=== PATIENT | female | born 1950 | race Caucasian/White ===

== ENCOUNTER 2025-07-17 22:08 | Inpatient (IN) ==
[2025-07-17 23:00] LABS: Hematocrit (blood only) 43.1 % (37.0-47.0); Hemoglobin 14.6 g/dl (12.0-16.0); Immature Granulocytes # (auto) 0.01 K/uL (0.01-0.20); Immature Granulocytes % (auto) 0.1 %; Mean Corpuscular Hemoglobin 29.2 pg (25.0-34.0); Mean Corpuscular Volume 86.2 fL (80.0-100.0); Platelet Count 309 K/uL (130-400); RDW Standard Deviation 40.9 fL (36.4-46.3); Red Blood Count 5.00 M/uL (4.20-5.40); White Blood Count 8.77 K/ul (4.8-10.8)
[2025-07-18 00:18] LABS: Alanine Aminotransferase 12 U/L (7-52); Albumin Globulin Ratio 1.3 (0.9-2); Albumin Level 4.4 gm/dl (3.4-5.0); Alkaline Phosphatase 85 U/L (34-104); Anion Gap 6 (3-11); Bilirubin,Total 0.5 mg/dl (0.2-1.0); Blood Urea Nitrogen 14 mg/dl (6-23); Calcium 9.5 mg/dl (8.6-10.3); Carbon Dioxide 28 mmol/L (21-32); Chloride 106 mmol/L (98-107); Globulin 3.3 gm/dl (2.5-4.0); Glucose 91 mg/dl (70-99(Fasting)); Magnesium 2.2 mg/dl (1.7-2.4); Sodium 140 mmol/L (136-145); Total Protein 7.7 gm/dl (6.0-8.3)
[2025-07-18] MEDS: OPTIRAY 320 125ml IV ONE (00:22)
--- NOTE | 2025-07-18 00:32 | XRay Report ---
Exam(s): XR CXR 1 VIEW EXAM: XR Chest, 1 View CLINICAL HISTORY: neuro deficit, acute stroke suspected. TECHNIQUE: Frontal view of the chest. COMPARISON: Portable chest single view 03/09/2022 FINDINGS: Lungs: No focal consolidation. The pulmonary vasculature demonstrates no significant radiographic abnormality. Pleural space: Unremarkable. No pneumothorax. No large pleural effusion. Heart: Unremarkable. No cardiomegaly. Mediastinum: No significant abnormality identified. The trachea is midline. Bones/joints: Unremarkable. No acute fracture. IMPRESSION: No focal consolidation or acute cardiopulmonary process identified. Electronically signed by: Alejandro Ricks MD 07/18/25 00:31 AM
[2025-07-18 00:44] LABS: Potassium 4.1 mmol/L (3.5-5.1)
--- NOTE | 2025-07-18 01:11 | CT Scan Report ---
EXAM: CT head/brain wo con CLINICAL HISTORY: neuro deficit, acute stroke suspected TECHNIQUE: Multiple axial images were obtained from the skull base to the vertex without contrast. CT scan was performed according to ALARA (as low as reasonably achievable). COMPARISON: None. FINDINGS: There is cerebral atrophy. No evidence of space-occupying lesion, hemorrhage, edema, mass effect, midline shift, extra-axial collection, or hydrocephalus is noted. Basal cisterns are symmetric and normal in size and configuration. There are scattered periventricular hypodensities, as can be seen with chronic microvascular ischemic changes. The hagen-white matter differentiation is preserved. The visualized paranasal sinuses and mastoid air cells are well aerated. Orbital contents are within normal limits. Bony structures are intact. IMPRESSION: 1. CT scan is negative for large territorial ischemic or hemorrhagic stroke. 2. Non-contrast CT can be negative in the setting of hyperacute infarct or small ischemic infarct, and further evaluation with diffusion-weighted MRI is recommended as clinically appropriate. 3. Chronic microvascular ischemic changes. 4. Cerebral atrophy. Electronically signed by Brennen Ge 07-18-2025 01:10 AM
--- NOTE | 2025-07-18 01:12 | CT Scan Report ---
EXAM: CT angio head w con CLINICAL HISTORY: neuro deficit, acute stroke suspected TECHNIQUE: Contrast-enhanced, thin-slice CT angiography scan of the cerebral vessels was performed with intravenous contrast. Angiographic images were processed, and 3D MIP images were acquired for interpretation. Contiguous axial images were obtained. Reformatted coronal and sagittal images were also reviewed. If IV contrast material had not been administered, the likelihood of detecting abnormalities relevant to the patient's condition would have been substantially decreased. The CT scan was performed according to ALARA (as low as reasonably achievable) principles. COMPARISON: None. FINDINGS: Bilateral internal carotid arteries show normal course, calibre, and opacification in the canalicular and cavernous parts. Their division into the anterior cerebral artery and middle cerebral artery is defined. A1, A2, and M1, M2 segments are normal on both sides. Bilateral vertebral arteries are seen to unite to form the basilar artery in a normal fashion. The basilar artery shows normal course, caliber, and opacification. Its division into the posterior cerebral arteries is defined. Bilateral P1 and P2 segments are normal. Visualized venous structures show normal opacification. No evidence of intracranial aneurysm or AV malformation is seen. IMPRESSION: 1. No evidence of stenosis or aneurysm. No evidence of dissection. Electronically signed by Brennen Ge 07-18-2025 01:12 AM
--- NOTE | 2025-07-18 01:13 | CT Scan Report ---
EXAM: CT angio neck with con CLINICAL HISTORY: neuro deficit, acute stroke suspected TECHNIQUE: Contrast-enhanced thin-slice CT angiography scan of the carotid vessels was performed with intravenous contrast. Angiographic images were processed, and 3D MIP images were acquired for interpretation. Contiguous axial images were obtained. Reformatted coronal and sagittal images were also reviewed. If IV contrast material had not been administered, the likelihood of detecting abnormalities relevant to the patient's condition would have been substantially decreased. The CT scan was performed according to ALARA (as low as reasonably achievable). COMPARISON: none FINDINGS: The included great vessels of the aortic arch are grossly unremarkable. The common carotid artery, carotid bulb, internal carotid artery, and origin of the external carotid artery are well opacified. The vertebral arteries are well opacified. The jugular veins are well opacified. The included lung apices are grossly unremarkable. The thyroid gland appears unremarkable. IMPRESSION: 1. No evidence of stenosis or aneurysm. No evidence of dissection. Electronically signed by Brennen Ge 07-18-2025 01:13 AM
--- NOTE | 2025-07-18 01:27 | Emergency Department Note ---
Impression & Plan Cerebrovascular accident, Hypertension ED Provider Note NAME: FERNANDA BOWEN AGE: 75 SEX: F : 1950 ARRIVES VIA: Walk-In INFORMANT: Patient, ED PROVIDER(S): Linus Huynh DO CHIEF COMPLAINT: stroke like symptoms HPI: This is a 75-year-old female with the PMHx of Guanako's thyroiditis presenting to [facility] for further evaluation of strokelike symptoms. Patient is accompanied by her who provide additional history. Patient states that she had a headache 2 days ago. She states this is very atypical for her. She thought it was related to her sinuses. She currently splits her time between [place] and [place]. They are currently remodeling a home in the [place] area. She states that she was up on the roof today. She does note that she has had some back pain. Patient states that today around 6 PM she developed right sided paresthesias and weakness. She noted that it was difficult for her to walk. She was also having some right hip pain. Patient states her symptoms lasted approximately 20 minutes and resolved. They decided not to come to the hospital. She states this reoccurred around 9 PM. This again lasted about 20 minutes and this led to her presentation in the emergency department. Patient denies any stroke risk factors. They deny fever or chills. No cough or congestion. Denies chest pain or palpitations. No shortness of breath. They deny abdominal pain, nausea and vomiting. No urinary complaints. No recent changes in bowel movements. Patient denies recent changes in medications or OTC supplements. Patient offers no other complaints, today. ADDITIONAL HISTORY OBTAINED: Per HPI Chronic Medical/Social Conditions Affecting Care: Per HPI PAST MEDICAL HISTORY: See Below PAST SURGICAL HISTORY: See Below FAMILY HISTORY: See Below SOCIAL HISTORY: See Below HOME MEDICATIONS: See Below ALLERGIES: See Below VITALS: See Below PHYSICAL EXAMINATION: GENERAL: Sitting up in bed, alert, well appearing, well nourished, no distress, non-toxic EYE EXAM: normal conjunctiva. PERRL and EOM's grossly intact. OROPHARYNX: no exudate, no erythema, lips, buccal mucosa, and tongue normal and mucous membranes are moist NECK: supple, no nuchal rigidity, no adenopathy, non-tender LUNGS: Clear to auscultation. Normal chest wall mechanics HEART: no murmurs, regular rate, regular rhythm ABDOMEN: abdomen soft, non-tender, no masses, no rebound or guarding. BACK: Back is symmetrical on inspection and there is no deformity, no midline tenderness, no CVA tenderness. SKIN: no rashes and no bruising UPPER EXTREMITIES: upper extremities are grossly normal. LOWER EXTREMITIES: No pitting edema. NEURO EXAM: Normal sensorium, GCS 15, normal speech, no gross weakness of arms, no gross weakness of legs (possible subtle weakness in the RLE). No drift. Finger to nose intact. Gross sensation intact. NIHSS 0. MEDICAL DECISION MAKING: Differential diagnoses includes but not limited to intracranial hemorrhage, CVA, TIA, hydrocephalus, electrolyte derangements, dehydration, peripheral neuropathy In summary, this is a 75 year old female who presented with stroke like symptoms. Differential as above. Nursing notes and pertinent past medical records reviewed. Vital signs reviewed and the patient is hypertensive but otherwise afebrile and HDS. History and presentation revealed relatively healthy person without significant stroke risk factors. Physical examination revealed as above. As a result of my initial evaluation, IV access was established and the patient was placed on CCRM. Will initiate stroke workup with CTA head/neck but reassuring examination. Diagnostics interpreted by me include EKG and cardiac monitoring as listed below: -Cardiac Monitoring: An order was placed for continuous cardiac monitoring. The monitor shows a rate of 60-80s with regular rhythm. -ECG: Normal sinus rhythm at a rate of ventricular rate of [address] segment changes to suggest STEMI. Intervals are within normal limits. Patient completed laboratory studies and imaging. Results independently interpreted by me are no leukocytosis or anemia. Normal coags. There is no significant electrolyte derangements or significant kidney dysfunction from baseline. No changes in LFTs. The patient was managed with closer observation. CTA imaging is unremarkable. Further discussions held with the patient, patient had a sinus headache 2 days ago. She is described this is typical but also very abnormal for her. I wonder if this is when her symptoms started. Patient had 2 episodes of transient weakness and paresthesias of the right upper and lower extremities. Symptoms resolved by time of my evaluation. Her CTAs were reassuring. Would consider her moderate risk by ABCD2 scoring. I recommended inpatient workup for the patient. She is would like to be discharged if possible. Plan for MRI prior to further disposition plan.. MRI independently reviewed by me shows an acute ischemic stroke. I was connected with Dr. Husain of [facility] neurology. He recommended loading with aspirin and Plavix. He also recommended initiating statin. Patient will need her lipids and A1c checked. He recommended telemetry admission with possible TTE. Discussed further with the patient and her at bedside and they are agreeable to this. Ultimately, the decision was made to admit the patient for acute stroke and HTN. I discussed the case with the hospitalist service via telephone/Tiger[employer] and they are agreeable to admit the patient to their services by Dr. Fox. Based on the above, including the patient's age, coexisting illnesses, labs, imaging, and exam findings the decision to treat as an inpatient. I discussed the patient with the hospitalist team who recommended admission to their services. They received the medications, treatments, interventions indicated above and their condition remained stable. I discussed my findings with the patient and their family and they understand and agree with the treatment plan. All patient / family questions were answered to their satisfaction. Consults/Care Managements Discussions: Per MDM ER treatment provided: See above Procedures:none Critical Care: None The chart was completed utilizing [employer] Speech voice recognition software. Grammatical errors, random word insertions, pronoun errors, and incomplete sentences are an occasional consequence of this system due to software limitations, ambient noise, and hardware issues. Any formal questions or concerns about the content, text, or information contained within the body of this dictation should be directly addressed to the physician for clarification. Past Med/Surg History Problem List (Updated 07/18/25 @ 05:39 by Linus Huynh DO) Hypertension (Acute) Cerebrovascular accident (Acute) Medical History Guanako's thyroiditis Surgical History No pertinent past surgical history Social History Smoking Status: Never smoker Preferred Language: Bolivian Feels Safe at Home: Yes Allergies Allergies Allergy/AdvReac Type Severity Reaction Status Date / Time ranitidine Allergy Mild ALOPECIA Verified 10/13/09 04:43 Home Meds Home Medications Medication Instructions Recorded Confirmed Levothyroxine (Synthroid *) 0.075 mg PO DAILY ##0 01/08/09 07/18/25 Results & Data (ED) Vital Signs Vital Signs - 24 hr 07/17/25 22:09 07/17/25 22:15 07/17/25 23:06 Temperature 37.2 C Temperature Source Oral Pulse Rate 79 Pulse Rate [Radial] Pulse Rate from SpO2 Sensor Respiratory Rate 16 Respiratory Effort / Characteristics Non-Labored Spontaneous Non-Labored Respiratory Depth Normal Normal Respiratory Pattern Regular Blood Pressure 193/94 H Blood Pressure [Right Arm] Blood Pressure Mean 127 Blood Pressure Mean [Right Arm] Pulse Oximetry 98 Oxygen Delivery Method Room Air Room Air Oxygen Flow Rate 96 Sepsis Recent Fever Within 48 Hours No Sepsis New/Unexplained Change in Mental Status N/A Sepsis Action Taken by Nursing No Action Required 07/17/25 23:47 07/17/25 23:47 07/17/25 23:47 Temperature Temperature Source Pulse Rate Pulse Rate [Radial] Pulse Rate from SpO2 Sensor Respiratory Rate Respiratory Effort / Characteristics Respiratory Depth Respiratory Pattern Blood Pressure 154/90 H 154/90 H 154/90 H Blood Pressure [Right Arm] Blood Pressure Mean 119 119 119 Blood Pressure Mean [Right Arm] Pulse Oximetry Oxygen Delivery Method Oxygen Flow Rate Sepsis Recent Fever Within 48 Hours Sepsis New/Unexplained Change in Mental Status Sepsis Action Taken by Nursing 07/17/25 23:47 07/17/25 23:48 07/17/25 23:51 Temperature Temperature Source Pulse Rate 67 Pulse Rate [Radial] Pulse Rate from SpO2 Sensor 69 Respiratory Rate 13 Respiratory Effort / Characteristics Non-Labored Respiratory Depth Normal Respiratory Pattern Blood Pressure 154/90 H Blood Pressure [Right Arm] Blood Pressure Mean 119 Blood Pressure Mean [Right Arm] Pulse Oximetry 96 Oxygen Delivery Method Oxygen Flow Rate Sepsis Recent Fever Within 48 Hours Sepsis New/Unexplained Change in Mental Status Sepsis Action Taken by Nursing 07/17/25 23:51 07/18/25 00:00 07/18/25 00:06 Temperature Temperature Source Pulse Rate 67 71 Pulse Rate [Radial] Pulse Rate from SpO2 Sensor 68 69 Respiratory Rate 18 16 Respiratory Effort / Characteristics Non-Labored Respiratory Depth Normal Respiratory Pattern Blood Pressure Blood Pressure [Right Arm] Blood Pressure Mean Blood Pressure Mean [Right Arm] Pulse Oximetry 95 96 Oxygen Delivery Method Oxygen Flow Rate Sepsis Recent Fever Within 48 Hours Sepsis New/Unexplained Change in Mental Status Sepsis Action Taken by Nursing 07/18/25 00:27 07/18/25 00:27 07/18/25 00:27 Temperature Temperature Source Pulse Rate Pulse Rate [Radial] Pulse Rate from SpO2 Sensor Respiratory Rate Respiratory Effort / Characteristics Respiratory Depth Respiratory Pattern Blood Pressure 197/102 H 197/102 H 197/102 H Blood Pressure [Right Arm] Blood Pressure Mean 136 136 136 Blood Pressure Mean [Right Arm] Pulse Oximetry Oxygen Delivery Method Oxygen Flow Rate Sepsis Recent Fever Within 48 Hours Sepsis New/Unexplained Change in Mental Status Sepsis Action Taken by Nursing 07/18/25 00:27 07/18/25 00:27 07/18/25 00:30 Temperature Temperature Source Pulse Rate 86 76 Pulse Rate [Radial] Pulse Rate from SpO2 Sensor 87 77 Respiratory Rate 22 20 Respiratory Effort / Characteristics Respiratory Depth Respiratory Pattern Blood Pressure 154/90 H Blood Pressure [Right Arm] Blood Pressure Mean 119 Blood Pressure Mean [Right Arm] Pulse Oximetry 96 93 Oxygen Delivery Method Oxygen Flow Rate Sepsis Recent Fever Within 48 Hours Sepsis New/Unexplained Change in Mental Status Sepsis Action Taken by Nursing 07/18/25 00:31 07/18/25 00:31 07/18/25 00:31 Temperature Temperature Source Pulse Rate Pulse Rate [Radial] Pulse Rate from SpO2 Sensor Respiratory Rate Respiratory Effort / Characteristics Respiratory Depth Respiratory Pattern Blood Pressure 156/87 H 156/87 H 156/87 H Blood Pressure [Right Arm] Blood Pressure Mean 106 106 106 Blood Pressure Mean [Right Arm] Pulse Oximetry Oxygen Delivery Method Oxygen Flow Rate Sepsis Recent Fever Within 48 Hours Sepsis New/Unexplained Change in Mental Status Sepsis Action Taken by Nursing 07/18/25 00:31 07/18/25 00:31 07/18/25 00:42 Temperature Temperature Source Pulse Rate 71 Pulse Rate [Radial] Pulse Rate from SpO2 Sensor 71 Respiratory Rate 22 Respiratory Effort / Characteristics Respiratory Depth Respiratory Pattern Blood Pressure 156/87 H 156/87 H Blood Pressure [Right Arm] Blood Pressure Mean 106 106 Blood Pressure Mean [Right Arm] Pulse Oximetry 96 Oxygen Delivery Method Oxygen Flow Rate Sepsis Recent Fever Within 48 Hours Sepsis New/Unexplained Change in Mental Status Sepsis Action Taken by Nursing 07/18/25 00:51 07/18/25 01:00 07/18/25 01:00 Temperature Temperature Source Pulse Rate 66 Pulse Rate [Radial] Pulse Rate from SpO2 Sensor 65 Respiratory Rate 17 Respiratory Effort / Characteristics Non-Labored Respiratory Depth Normal Respiratory Pattern Blood Pressure 143/86 H Blood Pressure [Right Arm] Blood Pressure Mean 109 Blood Pressure Mean [Right Arm] Pulse Oximetry 97 Oxygen Delivery Method Oxygen Flow Rate Sepsis Recent Fever Within 48 Hours Sepsis New/Unexplained Change in Mental Status Sepsis Action Taken by Nursing 07/18/25 01:00 07/18/25 01:00 07/18/25 01:00 Temperature Temperature Source Pulse Rate Pulse Rate [Radial] Pulse Rate from SpO2 Sensor Respiratory Rate Respiratory Effort / Characteristics Respiratory Depth Respiratory Pattern Blood Pressure 143/86 H 143/86 H 143/86 H Blood Pressure [Right Arm] Blood Pressure Mean 109 109 109 Blood Pressure Mean [Right Arm] Pulse Oximetry Oxygen Delivery Method Oxygen Flow Rate Sepsis Recent Fever Within 48 Hours Sepsis New/Unexplained Change in Mental Status Sepsis Action Taken by Nursing 07/18/25 01:00 07/18/25 01:00 07/18/25 01:00 Temperature Temperature Source Pulse Rate 65 68 Pulse Rate [Radial] Pulse Rate from SpO2 Sensor 65 Respiratory Rate 16 Respiratory Effort / Characteristics Respiratory Depth Respiratory Pattern Blood Pressure 143/86 H Blood Pressure [Right Arm] Blood Pressure Mean 109 Blood Pressure Mean [Right Arm] Pulse Oximetry 96 Oxygen Delivery Method Oxygen Flow Rate Sepsis Recent Fever Within 48 Hours Sepsis New/Unexplained Change in Mental Status Sepsis Action Taken by Nursing 07/18/25 01:12 07/18/25 01:21 07/18/25 01:30 Temperature Temperature Source Pulse Rate 69 70 Pulse Rate [Radial] Pulse Rate from SpO2 Sensor 69 70 Respiratory Rate 24 23 Respiratory Effort / Characteristics Respiratory Depth Respiratory Pattern Blood Pressure 150/76 H Blood Pressure [Right Arm] Blood Pressure Mean 97 Blood Pressure Mean [Right Arm] Pulse Oximetry 97 96 Oxygen Delivery Method Oxygen Flow Rate Sepsis Recent Fever Within 48 Hours Sepsis New/Unexplained Change in Mental Status Sepsis Action Taken by Nursing 07/18/25 01:30 07/18/25 01:30 07/18/25 01:30 Temperature Temperature Source Pulse Rate Pulse Rate [Radial] Pulse Rate from SpO2 Sensor Respiratory Rate Respiratory Effort / Characteristics Respiratory Depth Respiratory Pattern Blood Pressure 150/76 H 150/76 H 150/76 H Blood Pressure [Right Arm] Blood Pressure Mean 97 97 97 Blood Pressure Mean [Right Arm] Pulse Oximetry Oxygen Delivery Method Oxygen Flow Rate Sepsis Recent Fever Within 48 Hours Sepsis New/Unexplained Change in Mental Status Sepsis Action Taken by Nursing 07/18/25 01:30 07/18/25 01:30 07/18/25 01:42 Temperature Temperature Source Pulse Rate 64 71 Pulse Rate [Radial] Pulse Rate from SpO2 Sensor 64 69 Respiratory Rate 19 15 Respiratory Effort / Characteristics Respiratory Depth Respiratory Pattern Blood Pressure 150/76 H Blood Pressure [Right Arm] Blood Pressure Mean 97 Blood Pressure Mean [Right Arm] Pulse Oximetry 95 96 Oxygen Delivery Method Oxygen Flow Rate Sepsis Recent Fever Within 48 Hours Sepsis New/Unexplained Change in Mental Status Sepsis Action Taken by Nursing 07/18/25 01:51 07/18/25 02:00 07/18/25 02:00 Temperature Temperature Source Pulse Rate 62 67 Pulse Rate [Radial] Pulse Rate from SpO2 Sensor 62 66 Respiratory Rate 20 19 Respiratory Effort / Characteristics Respiratory Depth Respiratory Pattern Blood Pressure 154/91 H Blood Pressure [Right Arm] Blood Pressure Mean 112 Blood Pressure Mean [Right Arm] Pulse Oximetry 96 96 Oxygen Delivery Method Oxygen Flow Rate Sepsis Recent Fever Within 48 Hours Sepsis New/Unexplained Change in Mental Status Sepsis Action Taken by Nursing 07/18/25 02:00 07/18/25 02:00 07/18/25 02:00 Temperature Temperature Source Pulse Rate Pulse Rate [Radial] Pulse Rate from SpO2 Sensor Respiratory Rate Respiratory Effort / Characteristics Respiratory Depth Respiratory Pattern Blood Pressure 154/91 H 154/91 H 154/91 H Blood Pressure [Right Arm] Blood Pressure Mean 112 112 112 Blood Pressure Mean [Right Arm] Pulse Oximetry Oxygen Delivery Method Oxygen Flow Rate Sepsis Recent Fever Within 48 Hours Sepsis New/Unexplained Change in Mental Status Sepsis Action Taken by Nursing 07/18/25 02:00 07/18/25 02:12 07/18/25 03:00 Temperature Temperature Source Pulse Rate 63 Pulse Rate [Radial] 65 Pulse Rate from SpO2 Sensor 63 Respiratory Rate 14 16 Respiratory Effort / Characteristics Non-Labored Spontaneous Respiratory Depth Normal Respiratory Pattern Regular Blood Pressure 154/91 H Blood Pressure [Right Arm] 151/95 H Blood Pressure Mean 112 Blood Pressure Mean [Right Arm] 113 Pulse Oximetry 97 95 Oxygen Delivery Method Room Air Oxygen Flow Rate Sepsis Recent Fever Within 48 Hours Sepsis New/Unexplained Change in Mental Status Sepsis Action Taken by Nursing 07/18/25 03:09 07/18/25 03:11 07/18/25 03:11 Temperature Temperature Source Pulse Rate Pulse Rate [Radial] Pulse Rate from SpO2 Sensor 67 Respiratory Rate Respiratory Effort / Characteristics Respiratory Depth Respiratory Pattern Blood Pressure 151/95 H 151/95 H Blood Pressure [Right Arm] Blood Pressure Mean 104 104 Blood Pressure Mean [Right Arm] Pulse Oximetry 98 Oxygen Delivery Method Oxygen Flow Rate Sepsis Recent Fever Within 48 Hours Sepsis New/Unexplained Change in Mental Status Sepsis Action Taken by Nursing 07/18/25 03:11 07/18/25 03:11 07/18/25 03:11 Temperature Temperature Source Pulse Rate Pulse Rate [Radial] Pulse Rate from SpO2 Sensor Respiratory Rate Respiratory Effort / Characteristics Respiratory Depth Respiratory Pattern Blood Pressure 151/95 H 151/95 H 151/95 H Blood Pressure [Right Arm] Blood Pressure Mean 104 104 104 Blood Pressure Mean [Right Arm] Pulse Oximetry Oxygen Delivery Method Oxygen Flow Rate Sepsis Recent Fever Within 48 Hours Sepsis New/Unexplained Change in Mental Status Sepsis Action Taken by Nursing 07/18/25 03:12 07/18/25 03:21 07/18/25 03:30 Temperature Temperature Source Pulse Rate 67 63 62 Pulse Rate [Radial] Pulse Rate from SpO2 Sensor 68 63 62 Respiratory Rate 26 H 18 14 Respiratory Effort / Characteristics Respiratory Depth Respiratory Pattern Blood Pressure Blood Pressure [Right Arm] Blood Pressure Mean Blood Pressure Mean [Right Arm] Pulse Oximetry 97 96 95 Oxygen Delivery Method Oxygen Flow Rate Sepsis Recent Fever Within 48 Hours Sepsis New/Unexplained Change in Mental Status Sepsis Action Taken by Nursing 07/18/25 03:30 07/18/25 03:30 07/18/25 03:30 Temperature Temperature Source Pulse Rate Pulse Rate [Radial] Pulse Rate from SpO2 Sensor Respiratory Rate Respiratory Effort / Characteristics Respiratory Depth Respiratory Pattern Blood Pressure 144/79 H 144/79 H 144/79 H Blood Pressure [Right Arm] Blood Pressure Mean 113 113 113 Blood Pressure Mean [Right Arm] Pulse Oximetry Oxygen Delivery Method Oxygen Flow Rate Sepsis Recent Fever Within 48 Hours Sepsis New/Unexplained Change in Mental Status Sepsis Action Taken by Nursing 07/18/25 03:30 07/18/25 05:03 Temperature Temperature Source Pulse Rate 65 Pulse Rate [Radial] Pulse Rate from SpO2 Sensor Respiratory Rate Respiratory Effort / Characteristics Respiratory Depth Respiratory Pattern Blood Pressure 144/79 H Blood Pressure [Right Arm] Blood Pressure Mean 113 Blood Pressure Mean [Right Arm] Pulse Oximetry Oxygen Delivery Method Oxygen Flow Rate Sepsis Recent Fever Within 48 Hours Sepsis New/Unexplained Change in Mental Status Sepsis Action Taken by Nursing Laboratory Data 07/17/25 22:43 07/17/25 22:43 Lab Results 07/17/25 07/18/25 07/18/25 Range/Units 22:43 01:09 05:02 WBC 8.77 (4.8-10.8) K/ul RBC 5.00 (4.20-5.40) M/uL Hgb 14.6 (12.0-16.0) g/dl Hct 43.1 (37.0-47.0) % MCV 86.2 (80.0-100.0) fL MCH 29.2 (25.0-34.0) pg MCHC 33.9 (32.0-36.0) g/dL RDW Std Deviation 40.9 (36.4-46.3) fL RDW Coeff of Mylene 13.0 (11.5-14.5) % Plt Count 309 (130-400) K/uL MPV 10.9 (9.4-12.4) fL Immature Gran % (Auto) 0.1 % Neut % (Auto) 37.7 % Lymph % (Auto) 48.0 % [place] % (Auto) 10.1 % Eos % (Auto) 3.4 % Baso % (Auto) 0.7 % Neut # (Auto) 3.30 (1.40-6.50) K/uL Lymph # (Auto) 4.21 H (1.20-3.40) K/uL [place] # (Auto) 0.89 H (0.11-0.59) K/uL Eos # (Auto) 0.30 (0.00-0.50) K/uL Baso # (Auto) 0.06 (0.00-0.20) K/uL Immature Gran # (Auto) 0.01 (0.01-0.20) K/uL PT Cancelled 11.6 INR Cancelled 1.1 APTT Cancelled 27 PTT Ratio Cancelled 1.0 Sodium 140 (136-145) mmol/L Potassium 4.1 (3.5-5.1) mmol/L Chloride 106 (98-107) mmol/L Carbon Dioxide 28 (21-32) mmol/L Anion Gap 6 (3-11) BUN 14 (6-23) mg/dl Creatinine 0.84 (0.6-1.2) mg/dl Est Cr Clr Drug Dosing Not Reportable eGFR 73.33 BUN/Creatinine Ratio 16.7 (10-20) Glucose 91 (70-99(Fasting)) mg/dl Calcium 9.5 (8.6-10.3) mg/dl Magnesium 2.2 (1.7-2.4) mg/dl Total Bilirubin 0.5 (0.2-1.0) mg/dl AST 18 (13-39) U/L ALT 12 (7-52) U/L Alkaline Phosphatase 85 (34-104) U/L Troponin I High Sens 6.4 (0-14) pg/ml Total Protein 7.7 (6.0-8.3) gm/dl Albumin 4.4 (3.4-5.0) gm/dl Globulin 3.3 (2.5-4.0) gm/dl Albumin/Globulin Ratio 1.3 (0.9-2) Triglycerides 82 (0-150) mg/dl Cholesterol 182 (0-200) mg/dl LDL Cholesterol, Calc 107 mg/dl VLDL Cholesterol, Calc 16 (0-30) mg/dl HDL Cholesterol 59 mg/dl Cholesterol/HDL Ratio 3.1 (0-5) Administered Medications Discontinued Medications Aspirin (Aspirin Chew 324 Mg) 324 mg PO NOW STA Stop: 07/18/25 04:16 Last Admin: 07/18/25 04:31 Dose: 324 mg Documented By: PAYAM Clopidogrel Bisulfate (Clopidogrel Bisulfate 300 Mg Tab) 300 mg PO NOW STA Stop: 07/18/25 04:16 Last Admin: 07/18/25 04:31 Dose: 300 mg Documented By: PAYAM Gadobutrol (Gadobutrol 65ml Vial) 7 ml IV ONCE ONE Stop: 07/18/25 03:08 Last Admin: 07/18/25 03:07 Dose: 7 ml Documented By: EDEN Ioversol (Optiray 320 125ml) 125 ml IV ONCE ONE Stop: 07/18/25 00:20 Last Admin: 07/18/25 00:22 Dose: 118 ml Documented By: JIAN Imaging Data Radiologist's Impression: Chest X-Ray 07/17/25 22:21 Exam(s): XR CXR 1 VIEW EXAM: XR Chest, 1 View CLINICAL HISTORY: neuro deficit, acute stroke suspected. TECHNIQUE: Frontal view of the chest. COMPARISON: Portable chest single view 03/09/2022 FINDINGS: Lungs: No focal consolidation. The pulmonary vasculature demonstrates no significant radiographic abnormality. Pleural space: Unremarkable. No pneumothorax. No large pleural effusion. Heart: Unremarkable. No cardiomegaly. Mediastinum: No significant abnormality identified. The trachea is midline. Bones/joints: Unremarkable. No acute fracture. IMPRESSION: No focal consolidation or acute cardiopulmonary process identified. Electronically signed by: Alejandro Ricks MD 07/18/25 00:[address] 07/17/25 22:21 EXAM: CT head/brain wo con CLINICAL HISTORY: neuro deficit, acute stroke suspected TECHNIQUE: Multiple axial images were obtained from the skull base to the vertex without contrast. CT scan was performed according to ALARA (as low as reasonably achievable). COMPARISON: None. FINDINGS: There is cerebral atrophy. No evidence of space-occupying lesion, hemorrhage, edema, mass effect, midline shift, extra-axial collection, or hydrocephalus is noted. Basal cisterns are symmetric and normal in size and configuration. There are scattered periventricular hypodensities, as can be seen with chronic microvascular ischemic changes. The jaffe-white matter differentiation is preserved. The visualized paranasal sinuses and mastoid air cells are well aerated. Orbital contents are within normal limits. Bony structures are intact. IMPRESSION: 1. CT scan is negative for large territorial ischemic or hemorrhagic stroke. 2. Non-contrast CT can be negative in the setting of hyperacute infarct or small ischemic infarct, and further evaluation with diffusion-weighted MRI is recommended as clinically appropriate. 3. Chronic microvascular ischemic changes. 4. Cerebral atrophy. Electronically signed by Brennen Ge 07-18-2025 01:10 AM Head CTA 07/17/25 22:21 EXAM: CT angio head w con CLINICAL HISTORY: neuro deficit, acute stroke suspected TECHNIQUE: Contrast-enhanced, thin-slice CT angiography scan of the cerebral vessels was performed with intravenous contrast. Angiographic images were processed, and 3D MIP images were acquired for interpretation. Contiguous axial images were obtained. Reformatted coronal and sagittal images were also reviewed. If IV contrast material had not been administered, the likelihood of detecting abnormalities relevant to the patient's condition would have been substantially decreased. The CT scan was performed according to ALARA (as low as reasonably achievable) principles. COMPARISON: None. FINDINGS: Bilateral internal carotid arteries show normal course, calibre, and opacification in the canalicular and cavernous parts. Their division into the anterior cerebral artery and middle cerebral artery is defined. A1, A2, and M1, M2 segments are normal on both sides. Bilateral vertebral arteries are seen to unite to form the basilar artery in a normal fashion. The basilar artery shows normal course, caliber, and opacification. Its division into the posterior cerebral arteries is defined. Bilateral P1 and P2 segments are normal. Visualized venous structures show normal opacification. No evidence of intracranial aneurysm or AV malformation is seen. IMPRESSION: 1. No evidence of stenosis or aneurysm. No evidence of dissection. Electronically signed by Brennen Ge 07-18-2025 01:12 AM Neck CTA 07/17/25 22:21 EXAM: CT angio neck with con CLINICAL HISTORY: neuro deficit, acute stroke suspected TECHNIQUE: Contrast-enhanced thin-slice CT angiography scan of the carotid vessels was performed with intravenous contrast. Angiographic images were processed, and 3D MIP images were acquired for interpretation. Contiguous axial images were obtained. Reformatted coronal and sagittal images were also reviewed. If IV contrast material had not been administered, the likelihood of detecting abnormalities relevant to the patient's condition would have been substantially decreased. The CT scan was performed according to ALARA (as low as reasonably achievable). COMPARISON: none FINDINGS: The included great vessels of the aortic arch are grossly unremarkable. The common carotid artery, carotid bulb, internal carotid artery, and origin of the external carotid artery are well opacified. The vertebral arteries are well opacified. The jugular veins are well opacified. The included lung apices are grossly unremarkable. The thyroid gland appears unremarkable. IMPRESSION: 1. No evidence of stenosis or aneurysm. No evidence of dissection. Electronically signed by Brennen Ge 07-18-2025 01:13 AM Brain MRI 07/18/25 01:18 EXAM: MR brain wo/w con CLINICAL HISTORY: eval for stroke TECHNIQUE: MRI of the brain was performed with and without intravenous contrast administration (specify contrast agent and dosage). Sequences obtained include pre-contrast and post-contrast T1-weighted, T2-weighted, FLAIR (Fluid-Attenuated Inversion Recovery), DWI (Diffusion-Weighted Imaging), and ADC (Apparent Diffusion Coefficient) sequences. COMPARISON: none. FINDINGS: Brain Parenchyma: A linear area of restricted diffusion is noted involving the left periventricular briones radiata, which appears hypointense on the ADC map without blooming on gradient echo images. This is suggestive of an acute nonhemorrhagic infarct. Multiple T2 and FLAIR hyperintense foci are noted involving the bilateral cerebral lobes' subcortical and periventricular white matter, suggestive of chronic small vessel ischemia. Jaffe-white matter differentiation is preserved. Mild diffuse cerebral and cerebellar atrophy is noted. Post-Contrast Findings: There is no abnormal enhancement of the brain parenchyma or meninges. Ventricles and Sulci: The ventricular system is within normal limits without evidence of hydrocephalus. Sulci and cisternal spaces are age-appropriate. Brainstem and Cerebellum: There is normal appearance of the brainstem and cerebellum without focal lesions or abnormal enhancement. Vessels: The intracranial vessels appear normal without evidence of vascular malformations or aneurysms. Skull and Calvarium: There is no evidence of skull vault lesions or abnormal marrow signal within the calvarium. IMPRESSION: A linear area of restricted diffusion is noted involving the left periventricular briones radiata, which appears hypointense on the ADC map without blooming on gradient echo images, suggestive of an acute nonhemorrhagic infarct. Multiple areas of chronic small vessel ischemia are noted involving the bilateral cerebral lobes. There is diffuse cerebral and cerebellar atrophy. Electronically signed by Brennen Ge 07-18-2025 03:50 AM Discharge Plan Visit Data Chief Complaint: Stroke/CVA Symptoms Stated Complaint: POSS STROKE AT 6 PM AND 9 PM, NO STROKE HX ED Provider: Linus Huynh Discharge Problem: Cerebrovascular accident, Hypertension Patient Disposition: Admitted As Inpatient Condition: Serious Forms Stand Alone Forms: [facility] Prescriptions Prescriptions: No Action Levothyroxine (Synthroid *) 0.075 MG tablet 0.075 mg PO DAILY Qty: 0 Referrals Referrals: Minesh Tong M.D. [Primary Care Provider] -
[2025-07-18 02:14] LABS: INR 1.1 (0.9-1.1); Partial Thromboplastin Time 27 Seconds (21-31); Prothrombin Time 11.6 Seconds (9.0-12.0)
[2025-07-18] MEDS: GADOBUTROL 65ML VIAL IV ONE (03:07)
--- NOTE | 2025-07-18 03:51 | Magnetic Resonance Report ---
EXAM: MR brain wo/w con CLINICAL HISTORY: eval for stroke TECHNIQUE: MRI of the brain was performed with and without intravenous contrast administration (specify contrast agent and dosage). Sequences obtained include pre-contrast and post-contrast T1-weighted, T2-weighted, FLAIR (Fluid-Attenuated Inversion Recovery), DWI (Diffusion-Weighted Imaging), and ADC (Apparent Diffusion Coefficient) sequences. COMPARISON: none. FINDINGS: Brain Parenchyma: A linear area of restricted diffusion is noted involving the left periventricular briones radiata, which appears hypointense on the ADC map without blooming on gradient echo images. This is suggestive of an acute nonhemorrhagic infarct. Multiple T2 and FLAIR hyperintense foci are noted involving the bilateral cerebral lobes' subcortical and periventricular white matter, suggestive of chronic small vessel ischemia. Jaffe-white matter differentiation is preserved. Mild diffuse cerebral and cerebellar atrophy is noted. Post-Contrast Findings: There is no abnormal enhancement of the brain parenchyma or meninges. Ventricles and Sulci: The ventricular system is within normal limits without evidence of hydrocephalus. Sulci and cisternal spaces are age-appropriate. Brainstem and Cerebellum: There is normal appearance of the brainstem and cerebellum without focal lesions or abnormal enhancement. Vessels: The intracranial vessels appear normal without evidence of vascular malformations or aneurysms. Skull and Calvarium: There is no evidence of skull vault lesions or abnormal marrow signal within the calvarium. IMPRESSION: A linear area of restricted diffusion is noted involving the left periventricular briones radiata, which appears hypointense on the ADC map without blooming on gradient echo images, suggestive of an acute nonhemorrhagic infarct. Multiple areas of chronic small vessel ischemia are noted involving the bilateral cerebral lobes. There is diffuse cerebral and cerebellar atrophy. Electronically signed by Brennen Ge 07-18-2025 03:50 AM
[2025-07-18] MEDS: ASPIRIN CHEW 324 MG PO STA (04:31)
[2025-07-18] MEDS: CLOPIDOGREL BISULFATE 300 MG TAB PO STA (04:31)
[2025-07-18 05:28] LABS: Cholesterol 182.0 mg/dl (0-200); HDL Cholesterol 59.0 mg/dl; Triglycerides 82.0 mg/dl (0-150)
--- NOTE | 2025-07-18 06:47 | History & Physical Report ---
Date of Service July 18, 2025 Assessment & Plan (1) Cerebrovascular accident: Plan: 75-year-old female with past medical history significant for hypothyroidism presents with strokelike symptoms. Patient is from [place]. 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 They have a house close to [place] [employer]. They periodically come to [place] [employer]. Patient is currently in [place] [employer] renovating her house. Couple of days ago she had severe headache but that got resolved. Yesterday at 6:00 PM patient noticed weakness and tingling on the right side which lasted for about half an hour. It again happened around 9 PM and lasted for about 30 minutes. Patient thinks currently cannot walk properly because of weakness in the right leg. Currently no headache. No blurred visions or double vision. No earache. No runny nose. No sore throat. No cough. Denies any difficulty swallowing. Patient denies chest pain or shortness of breath. No nausea. No abdominal pain. Normal bowel and bladder movements. Currently resting comfortably and hemodynamically stable. MRI was done in the ER as patient wanted to get discharged if possible ,which showed Possible acute Non hemorrhagic infarct in the left periventricular briones radiata. Patient received aspirin and Plavix. Acute CVA Presented with right-sided weakness Still has right leg weakness CTA head and neck unremarkable MRI brain suggestive of acute nonhemorrhagic infarct involving the left periventricular briones radiata Received aspirin and Plavix which will be continued LDL 107 and HDL 59 on lipid panel Will start on statin Monitoring telemetry Neurochecks Bedside swallow evaluation Echocardiogram PT OT Consulted Neurology Elevated blood pressure Will allow for permissive hypertension Will monitor Hypothyroidism On Synthyroid Will check TSH DVT prophylaxis SCDs Disposition Telemetry Full code. History of Present Illness Chief Complaint: Acute CVA Primary Care Provider: Minesh Tong 75-year-old female with past medical history significant for hypothyroidism presents with strokelike symptoms. Patient is from [place]. 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 They have a house close to [employer]. They periodically come to [place] [employer]. Patient is currently in [place] [employer] renovating her house. Couple of days ago she had severe headache but that got resolved. Yesterday at 6:00 PM patient noticed weakness and tingling on the right side which lasted for about half an hour. It again happened around 9 PM and lasted for about 30 minutes. Patient thinks currently cannot walk properly because of weakness in the right leg. Currently no headache. No blurred visions or double vision. No earache. No runny nose. No sore throat. No cough. Denies any difficulty swallowing. Patient denies chest pain or shortness of breath. No nausea. No abdominal pain. Normal bowel and bladder movements. Currently resting comfortably and hemodynamically stable. MRI was done in the ER as patient wanted to get discharged if possible ,which showed Possible acute Non hemorrhagic infarct in the left periventricular briones radiata. Patient received aspirin and Plavix. Past medical history. As mentioned above. Past surgical history. 2 nasal procedures. C-sections x 2. Left arm surgery. Left knee cartilage repair at the age of 20. Social history. No smoking. No alcohol use. Family history. Mother had thyroid issues. Mother had heart issues in old age. Allergies Allergy/AdvReac Type Severity Reaction Status Date / Time ranitidine Allergy Mild ALOPECIA Verified 10/13/09 04:43 Home Medications Medication Instructions Recorded Confirmed Type levothyroxine 75 mcg tablet 75 mcg PO DAILY 07/18/25 07/18/25 History Past Med/Surg History Problem List (Updated 07/18/25 @ 05:39 by Linus Huyhn DO) Hypertension (Acute) Cerebrovascular accident (Acute) Medical History Guanako's thyroiditis Surgical History No pertinent past surgical history Social History Smoking Status: Never smoker Preferred Language: Welsh Feels Safe at Home: Yes Review of Systems Review of Systems: All systems reviewed & are unremarkable except as noted in HPI & below Physical Exam Physical Exam: General- Not in distress Head- atraumatic Eyes- PERRL, EOMI. ENT- oropharynx clear Neck- supple, no JVD. Lungs- clear to auscultation no wheezing or crackles Heart- regular rhythm; no murmur, no gallop. Abdomen- normal bowel sounds, soft, nontender, no distension Extremities- no pretibial edema, no erythema seen Neuro- alert, oriented PERRL, EOMI; no facial palsy; no dysarthria; power 5/5 right upper extremity and left extremities. power 3/5 in right lower extremity; no pronator drift. Difficult to raise right leg. co ordination of movements normal. Sensations and position sense intact. Results & Data Results & Data Vital Signs (Past 12 Hours) Vital Signs Temp Pulse Pulse Resp BP BP Pulse Ox 07/18/25 05:03 65 07/18/25 05:00 60 16 158/88 H 95 07/18/25 03:30 144/79 H 07/18/25 03:30 144/79 H 07/18/25 03:30 144/79 H 07/18/25 03:30 144/79 H 07/18/25 03:30 62 14 95 07/18/25 03:21 63 18 96 07/18/25 03:12 67 26 H 97 07/18/25 03:11 151/95 H 07/18/25 03:11 151/95 H 07/18/25 03:11 151/95 H 07/18/25 03:11 151/95 H 07/18/25 03:11 151/95 H 07/18/25 03:09 98 07/18/25 03:00 65 16 151/95 H 95 07/18/25 02:12 63 14 97 07/18/25 02:00 154/91 H 07/18/25 02:00 154/91 H 07/18/25 02:00 154/91 H 07/18/25 02:00 154/91 H 07/18/25 02:00 154/91 H 07/18/25 02:00 67 19 96 07/18/25 01:51 62 20 96 07/18/25 01:42 71 15 96 07/18/25 01:30 64 19 95 07/18/25 01:30 150/76 H 07/18/25 01:30 150/76 H 07/18/25 01:30 150/76 H 07/18/25 01:30 150/76 H 07/18/25 01:30 150/76 H 07/18/25 01:21 70 23 96 07/18/25 01:12 69 24 97 07/18/25 01:00 68 07/18/25 01:00 65 16 96 07/18/25 01:00 143/86 H 07/18/25 01:00 143/86 H 07/18/25 01:00 143/86 H 07/18/25 01:00 143/86 H 07/18/25 01:00 143/86 H 07/18/25 00:51 66 17 97 07/18/25 00:42 71 22 96 07/18/25 00:31 156/87 H 07/18/25 00:31 156/87 H 07/18/25 00:31 156/87 H 07/18/25 00:31 156/87 H 07/18/25 00:31 156/87 H 07/18/25 00:30 76 20 93 07/18/25 00:27 86 22 96 07/18/25 00:27 154/90 H 07/18/25 00:27 197/102 H 07/18/25 00:27 197/102 H 07/18/25 00:27 197/102 H 07/18/25 00:00 71 16 96 07/17/25 23:51 67 18 95 07/17/25 23:48 67 13 96 07/17/25 23:47 154/90 H 07/17/25 23:47 154/90 H 07/17/25 23:47 154/90 H 07/17/25 23:47 154/90 H 07/17/25 22:15 37.2 C 79 16 193/94 H 98 07/17/25 22:09 O2 Del Method O2 Flow Rate 07/18/25 05:03 07/18/25 05:00 Room Air 07/18/25 03:30 07/18/25 03:30 07/18/25 03:30 07/18/25 03:30 07/18/25 03:30 07/18/25 03:21 07/18/25 03:12 07/18/25 03:11 07/18/25 03:11 07/18/25 03:11 07/18/25 03:11 07/18/25 03:11 07/18/25 03:09 07/18/25 03:00 Room Air 07/18/25 02:12 07/18/25 02:00 07/18/25 02:00 07/18/25 02:00 07/18/25 02:00 07/18/25 02:00 07/18/25 02:00 07/18/25 01:51 07/18/25 01:42 07/18/25 01:30 07/18/25 01:30 07/18/25 01:30 07/18/25 01:30 07/18/25 01:30 07/18/25 01:30 07/18/25 01:21 07/18/25 01:12 07/18/25 01:00 07/18/25 01:00 07/18/25 01:00 07/18/25 01:00 07/18/25 01:00 07/18/25 01:00 07/18/25 01:00 07/18/25 00:51 07/18/25 00:42 07/18/25 00:31 07/18/25 00:31 07/18/25 00:31 07/18/25 00:31 07/18/25 00:31 07/18/25 00:30 07/18/25 00:27 07/18/25 00:27 07/18/25 00:27 07/18/25 00:27 07/18/25 00:27 07/18/25 00:00 07/17/25 23:51 07/17/25 23:48 07/17/25 23:47 07/17/25 23:47 07/17/25 23:47 07/17/25 23:47 07/17/25 22:15 Room Air 07/17/25 22:09 Room Air 96 Diagnostic Findings Laboratory Results WBC 8.77 K/ul (4.8-10.8) 07/17/25 22:43 RBC 5.00 M/uL (4.20-5.40) 07/17/25 22:43 Hgb 14.6 g/dl (12.0-16.0) 07/17/25 22:43 Hct 43.1 % (37.0-47.0) 07/17/25 22:43 MCV 86.2 fL (80.0-100.0) 07/17/25 22:43 MCH 29.2 pg (25.0-34.0) 07/17/25 22:43 MCHC 33.9 g/dL (32.0-36.0) 07/17/25 22:43 RDW Std Deviation 40.9 fL (36.4-46.3) 07/17/25 22:43 RDW Coeff of Mylene 13.0 % (11.5-14.5) 07/17/25 22:43 Plt Count 309 K/uL (130-400) 07/17/25 22:43 MPV 10.9 fL (9.4-12.4) 07/17/25 22:43 Immature Gran % (Auto) 0.1 % 07/17/25 22:43 Neut % (Auto) 37.7 % 07/17/25 22:43 Lymph % (Auto) 48.0 % 07/17/25 22:43 [place] % (Auto) 10.1 % 07/17/25 22:43 Eos % (Auto) 3.4 % 07/17/25 22:43 Baso % (Auto) 0.7 % 07/17/25 22:43 Neut # (Auto) 3.30 K/uL (1.40-6.50) 07/17/25 22:43 Lymph # (Auto) 4.21 K/uL (1.20-3.40) H 07/17/25 22:43 [place] # (Auto) 0.89 K/uL (0.11-0.59) H 07/17/25 22:43 Eos # (Auto) 0.30 K/uL (0.00-0.50) 07/17/25 22:43 Baso # (Auto) 0.06 K/uL (0.00-0.20) 07/17/25 22:43 Immature Gran # (Auto) 0.01 K/uL (0.01-0.20) 07/17/25 22:43 PT 11.6 Seconds (9.0-12.0) 07/18/25 01:09 INR 1.1 (0.9-1.1) 07/18/25 01:09 APTT 27 Seconds (21-31) 07/18/25 01:09 PTT Ratio 1.0 07/18/25 01:09 Sodium 140 mmol/L (136-145) 07/17/25 22:43 Potassium 4.1 mmol/L (3.5-5.1) 07/17/25 22:43 Chloride 106 mmol/L (98-107) 07/17/25 22:43 Carbon Dioxide 28 mmol/L (21-32) 07/17/25 22:43 Anion Gap 6 (3-11) 07/17/25 22:43 BUN 14 mg/dl (6-23) 07/17/25 22:43 Creatinine 0.84 mg/dl (0.6-1.2) 07/17/25 22:43 Est Cr Clr Drug Dosing Not Reportable 07/17/25 22:43 eGFR 73.33 07/17/25 22:43 BUN/Creatinine Ratio 16.7 (10-20) 07/17/25 22:43 Glucose 91 mg/dl (70-99(Fasting)) 07/17/25 22:43 Calcium 9.5 mg/dl (8.6-10.3) 07/17/25 22:43 Magnesium 2.2 mg/dl (1.7-2.4) 07/17/25 22:43 Total Bilirubin 0.5 mg/dl (0.2-1.0) 07/17/25 22:43 AST 18 U/L (13-39) 07/17/25 22:43 ALT 12 U/L (7-52) 07/17/25 22:43 Alkaline Phosphatase 85 U/L (34-104) 07/17/25 22:43 Troponin I High Sens 6.4 pg/ml (0-14) 07/17/25 22:43 Total Protein 7.7 gm/dl (6.0-8.3) 07/17/25 22:43 Albumin 4.4 gm/dl (3.4-5.0) 07/17/25 22:43 Globulin 3.3 gm/dl (2.5-4.0) 07/17/25 22:43 Albumin/Globulin Ratio 1.3 (0.9-2) 07/17/25 22:43 Triglycerides 82 mg/dl (0-150) 07/18/25 05:02 Cholesterol 182 mg/dl (0-200) 07/18/25 05:02 LDL Cholesterol, Calc 107 mg/dl 07/18/25 05:02 VLDL Cholesterol, Calc 16 mg/dl (0-30) 07/18/25 05:02 HDL Cholesterol 59 mg/dl 07/18/25 05:02 Cholesterol/HDL Ratio 3.1 (0-5) 07/18/25 05:02 Impressions Chest X-Ray 07/17/25 22:21 Exam(s): XR CXR 1 VIEW EXAM: XR Chest, 1 View CLINICAL HISTORY: neuro deficit, acute stroke suspected. TECHNIQUE: Frontal view of the chest. COMPARISON: Portable chest single view 03/09/2022 FINDINGS: Lungs: No focal consolidation. The pulmonary vasculature demonstrates no significant radiographic abnormality. Pleural space: Unremarkable. No pneumothorax. No large pleural effusion. Heart: Unremarkable. No cardiomegaly. Mediastinum: No significant abnormality identified. The trachea is midline. Bones/joints: Unremarkable. No acute fracture. IMPRESSION: No focal consolidation or acute cardiopulmonary process identified. Electronically signed by: Alejandro Ricks MD 07/18/25 00:[address] 07/17/25 22:21 EXAM: CT head/brain wo con CLINICAL HISTORY: neuro deficit, acute stroke suspected TECHNIQUE: Multiple axial images were obtained from the skull base to the vertex without contrast. CT scan was performed according to ALARA (as low as reasonably achievable). COMPARISON: None. FINDINGS: There is cerebral atrophy. No evidence of space-occupying lesion, hemorrhage, edema, mass effect, midline shift, extra-axial collection, or hydrocephalus is noted. Basal cisterns are symmetric and normal in size and configuration. There are scattered periventricular hypodensities, as can be seen with chronic microvascular ischemic changes. The jaffe-white matter differentiation is preserved. The visualized paranasal sinuses and mastoid air cells are well aerated. Orbital contents are within normal limits. Bony structures are intact. IMPRESSION: 1. CT scan is negative for large territorial ischemic or hemorrhagic stroke. 2. Non-contrast CT can be negative in the setting of hyperacute infarct or small ischemic infarct, and further evaluation with diffusion-weighted MRI is recommended as clinically appropriate. 3. Chronic microvascular ischemic changes. 4. Cerebral atrophy. Electronically signed by Brennen Ge 07-18-2025 01:10 AM Head CTA 07/17/25 22:21 EXAM: CT angio head w con CLINICAL HISTORY: neuro deficit, acute stroke suspected TECHNIQUE: Contrast-enhanced, thin-slice CT angiography scan of the cerebral vessels was performed with intravenous contrast. Angiographic images were processed, and 3D MIP images were acquired for interpretation. Contiguous axial images were obtained. Reformatted coronal and sagittal images were also reviewed. If IV contrast material had not been administered, the likelihood of detecting abnormalities relevant to the patient's condition would have been substantially decreased. The CT scan was performed according to ALARA (as low as reasonably achievable) principles. COMPARISON: None. FINDINGS: Bilateral internal carotid arteries show normal course, calibre, and opacification in the canalicular and cavernous parts. Their division into the anterior cerebral artery and middle cerebral artery is defined. A1, A2, and M1, M2 segments are normal on both sides. Bilateral vertebral arteries are seen to unite to form the basilar artery in a normal fashion. The basilar artery shows normal course, caliber, and opacification. Its division into the posterior cerebral arteries is defined. Bilateral P1 and P2 segments are normal. Visualized venous structures show normal opacification. No evidence of intracranial aneurysm or AV malformation is seen. IMPRESSION: 1. No evidence of stenosis or aneurysm. No evidence of dissection. Electronically signed by Brennen Ge 07-18-2025 01:12 AM Neck CTA 07/17/25 22:21 EXAM: CT angio neck with con CLINICAL HISTORY: neuro deficit, acute stroke suspected TECHNIQUE: Contrast-enhanced thin-slice CT angiography scan of the carotid vessels was performed with intravenous contrast. Angiographic images were processed, and 3D MIP images were acquired for interpretation. Contiguous axial images were obtained. Reformatted coronal and sagittal images were also reviewed. If IV contrast material had not been administered, the likelihood of detecting abnormalities relevant to the patient's condition would have been substantially decreased. The CT scan was performed according to ALARA (as low as reasonably achievable). COMPARISON: none FINDINGS: The included great vessels of the aortic arch are grossly unremarkable. The common carotid artery, carotid bulb, internal carotid artery, and origin of the external carotid artery are well opacified. The vertebral arteries are well opacified. The jugular veins are well opacified. The included lung apices are grossly unremarkable. The thyroid gland appears unremarkable. IMPRESSION: 1. No evidence of stenosis or aneurysm. No evidence of dissection. Electronically signed by Brennen Ge 07-18-2025 01:13 AM Brain MRI 07/18/25 01:18 EXAM: MR brain wo/w con CLINICAL HISTORY: eval for stroke TECHNIQUE: MRI of the brain was performed with and without intravenous contrast administration (specify contrast agent and dosage). Sequences obtained include pre-contrast and post-contrast T1-weighted, T2-weighted, FLAIR (Fluid-Attenuated Inversion Recovery), DWI (Diffusion-Weighted Imaging), and ADC (Apparent Diffusion Coefficient) sequences. COMPARISON: none. FINDINGS: Brain Parenchyma: A linear area of restricted diffusion is noted involving the left periventricular briones radiata, which appears hypointense on the ADC map without blooming on gradient echo images. This is suggestive of an acute nonhemorrhagic infarct. Multiple T2 and FLAIR hyperintense foci are noted involving the bilateral cerebral lobes' subcortical and periventricular white matter, suggestive of chronic small vessel ischemia. Jaffe-white matter differentiation is preserved. Mild diffuse cerebral and cerebellar atrophy is noted. Post-Contrast Findings: There is no abnormal enhancement of the brain parenchyma or meninges. Ventricles and Sulci: The ventricular system is within normal limits without evidence of hydrocephalus. Sulci and cisternal spaces are age-appropriate. Brainstem and Cerebellum: There is normal appearance of the brainstem and cerebellum without focal lesions or abnormal enhancement. Vessels: The intracranial vessels appear normal without evidence of vascular malformations or aneurysms. Skull and Calvarium: There is no evidence of skull vault lesions or abnormal marrow signal within the calvarium. IMPRESSION: A linear area of restricted diffusion is noted involving the left periventricular briones radiata, which appears hypointense on the ADC map without blooming on gradient echo images, suggestive of an acute nonhemorrhagic infarct. Multiple areas of chronic small vessel ischemia are noted involving the bilateral cerebral lobes. There is diffuse cerebral and cerebellar atrophy. Electronically signed by Brennen Ge 07-18-2025 03:50 AM ECG Additional Comments: ECG. Normal sinus rhythm at rate of 70. Possible left atrial enlargement. No significant change was found. QTc 462 Code Status & VTE Plan VTE Prophylaxis Plan VTE Prophylaxis will be ordered: Yes
[2025-07-18 07:17] LABS: Hemoglobin A1C 5.4 % (4.5-5.6)
[2025-07-18] MEDS ORDERED: PHARMACIST DISCHARGE MED REC CONSULT PRN (09:46)
[2025-07-18] MEDS ORDERED: ACETAMINOPHEN 325 MG TAB PO PRN (09:46)
[2025-07-18] MEDS ORDERED: POLYETHYLENE (MIRALAX) 17 GM PACK PO PRN (09:46)
[2025-07-18] MEDS ORDERED: NITROGLYCERIN SL 0.4 MG/TAB TAB SL PRN (09:46)
[2025-07-18] MEDS: SODIUM CHLORIDE 0.9% 1,000 ML IV SCH (10:11)
--- NOTE | 2025-07-18 10:41 | Neurology Consultation ---
Date of Consultation July 18, 2025 Assessment & Plan (1) Cerebrovascular accident: Acute left MCA stroke in a 75F with a PMH of hypothroidism. ON exam she has mild right sided weakness. CTA is unremarkable and MRI shows a small area of stroke. The mechanism of stroke is likely small vessel and she clearlly has had small vessel injury in the past, however a cardioembolic cause is also possible Plan -- continue ASA 81 (non-enteric coated), and plavix 75 for a total of 21 days and then stop one -- continue atorvastatin 40 ( can d/c if afib is detected) -- echocardiogram pending, zio at d/c if no afib is found -- PT/OT/CLOTHING CONSULTANT evaluation -- outpatient neurology follow up Telehealth Consultation Telehealth Information Telehealth Information: I performed this visit using a real-time telehealth connection between my location and the patients originating location ([facility]). After connecting through interactive tele-video, patient was identified by name and date of and/or wristband check.Patient (or authorized healthcare guest experience representative) was informed that this was a telemedicine visit and it was being conducted confidentially over secure lines. My office door was closed and no one else was present in the room with me.Patient (or authorized healthcare guest experience representative) provided consent to proceed with the visit, expressed an understanding of privacy and security of the telemedicine visit, and gave permission to have a hospital guest experience representative in the room in order to assist with the visit and to conduct portions of the visit, as needed. I informed the patient (or authorized healthcare guest experience representative) that I reviewed their record and presented the opportunity for them to ask any questions regarding the visit today. The patient agreed to participate. History of Present Illness Reason for Consultation: Stroke Requesting Physician: Dr Gonzalez Attending Physician: Radha Gonzalez MD History of Present Illness Elizabeth Wyatt is a 75F with a PMH of hypothyroid, pervious work up for MS who presents with right sided weakness and gait instability. She reports that she is in the process of remodeling a house in [place] and was working outside most of the weekend. Then she went to lie down and when she got up her right leg gave out and she felt that her right arm was numb. She tried to stand but couldn't. She called her who gave her an ASA 81 and was bringing her into the ER when her symptoms improved and she went back home. The symptoms came back several hours later and she came to the ED. She endorses feeling "fuzzy" but denies headache. She recently had the flu and was febrile with a back headache and myalgias at that time but that has improved. She deneis vision changes, dysphagia, dysarthria, chest pain and SOB. Allergies Allergy/AdvReac Type Severity Reaction Status Date / Time ranitidine Allergy Mild ALOPECIA Verified 10/13/09 04:43 Home Medications Medication Instructions Recorded Confirmed Type levothyroxine 75 mcg tablet 75 mcg PO DAILY 07/18/25 07/18/25 History Patient History Medical History Guanako's thyroiditis Surgical History No pertinent past surgical history Social History Smoking Status: Never smoker Second Hand Exposure: No; Do You Dip or Chew Tobacco: No; Tobacco Cessation Education Requested by Patient: No Hx Alcohol Use: No Hx Substance Use: No Preferred Language: Greenlandic Communication Ability: Effective Maintenance Service Dispatcher Required: No Beliefs That Will Affect Care: None Current Living Situation: Spouse Other Information That Helps Us Care for You: No Feels Safe at Home: Yes Safety Concerns: Feels Safe At This Time Assistive Devices: Glasses Review of Systems see HPI Physical Exam NEUROLOGIC EXAMINATION: Mental Status:alert, oriented to time, place, person, normal recent memory, normal remote memory, normal attention span, normal concentration, normal language, and normal fund of knowledge Cranial Nerves: CN 2 - no visual defect on confrontation and pupils round, equal, reactive to light CN 3, 4, 6 - extra-ocular movements intact and no nystagmus CN 5 - facial sensation intact CN 7 - no facial asymmetry CN 8 - intact hearing CN 9, 10 - palate symmetric, normal gag CN 11 - good shoulder shrug CN 12 - tongue midline MOTOR: Strength was at least antigravity throughout, finger curl on right with pronator drift, and There were no abnormal movements SENSATION: intact GAIT: deferred COORDINATION: no ataxia with finger to nose testing and heel to valdez testing REFLEXES: cannot assess over telemedicine NIH 0 Results & Data Vital Signs (Past 12 Hours) Vital Signs Pulse Pulse Resp BP BP BP Pulse Ox 07/18/25 10:00 63 07/18/25 09:51 07/18/25 09:40 64 16 170/92 H 173/89 H 99 07/18/25 09:03 68 13 147/88 H 97 07/18/25 07:05 64 19 148/86 H 98 07/18/25 05:03 65 07/18/25 05:00 60 16 158/88 H 95 07/18/25 03:30 144/79 H 07/18/25 03:30 144/79 H 07/18/25 03:30 144/79 H 07/18/25 03:30 144/79 H 07/18/25 03:30 62 14 95 07/18/25 03:21 63 18 96 07/18/25 03:12 67 26 H 97 07/18/25 03:11 151/95 H 07/18/25 03:11 151/95 H 07/18/25 03:11 151/95 H 07/18/25 03:11 151/95 H 07/18/25 03:11 151/95 H 07/18/25 03:09 98 07/18/25 03:00 65 16 151/95 H 95 07/18/25 02:12 63 14 97 07/18/25 02:00 154/91 H 07/18/25 02:00 154/91 H 07/18/25 02:00 154/91 H 07/18/25 02:00 154/91 H 07/18/25 02:00 154/91 H 07/18/25 02:00 67 19 96 07/18/25 01:51 62 20 96 07/18/25 01:42 71 15 96 07/18/25 01:30 64 19 95 07/18/25 01:30 150/76 H 07/18/25 01:30 150/76 H 07/18/25 01:30 150/76 H 07/18/25 01:30 150/76 H 07/18/25 01:30 150/76 H 07/18/25 01:21 70 23 96 07/18/25 01:12 69 24 97 07/18/25 01:00 68 07/18/25 01:00 65 16 96 07/18/25 01:00 143/86 H 07/18/25 01:00 143/86 H 07/18/25 01:00 143/86 H 07/18/25 01:00 143/86 H 07/18/25 01:00 143/86 H 07/18/25 00:51 66 17 97 07/18/25 00:42 71 22 96 07/18/25 00:31 156/87 H 07/18/25 00:31 156/87 H 07/18/25 00:31 156/87 H 07/18/25 00:31 156/87 H 07/18/25 00:31 156/87 H 07/18/25 00:30 76 20 93 07/18/25 00:27 86 22 96 07/18/25 00:27 154/90 H 07/18/25 00:27 197/102 H 07/18/25 00:27 197/102 H 07/18/25 00:27 197/102 H 07/18/25 00:00 71 16 96 07/17/25 23:51 67 18 95 07/17/25 23:48 67 13 96 07/17/25 23:47 154/90 H 07/17/25 23:47 154/90 H 07/17/25 23:47 154/90 H 07/17/25 23:47 154/90 H Pulse Ox O2 Del Method O2 Del Method 07/18/25 10:00 07/18/25 09:51 96 Room Air 07/18/25 09:40 Room Air 07/18/25 09:03 Room Air 07/18/25 07:05 Room Air 07/18/25 05:03 07/18/25 05:00 Room Air 07/18/25 03:30 07/18/25 03:30 07/18/25 03:30 07/18/25 03:30 07/18/25 03:30 07/18/25 03:21 07/18/25 03:12 07/18/25 03:11 07/18/25 03:11 07/18/25 03:11 07/18/25 03:11 07/18/25 03:11 07/18/25 03:09 07/18/25 03:00 Room Air 07/18/25 02:12 07/18/25 02:00 07/18/25 02:00 07/18/25 02:00 07/18/25 02:00 07/18/25 02:00 07/18/25 02:00 07/18/25 01:51 07/18/25 01:42 07/18/25 01:30 07/18/25 01:30 07/18/25 01:30 07/18/25 01:30 07/18/25 01:30 07/18/25 01:30 07/18/25 01:21 07/18/25 01:12 07/18/25 01:00 07/18/25 01:00 07/18/25 01:00 07/18/25 01:00 07/18/25 01:00 07/18/25 01:00 07/18/25 01:00 07/18/25 00:51 07/18/25 00:42 07/18/25 00:31 07/18/25 00:31 07/18/25 00:31 07/18/25 00:31 07/18/25 00:31 07/18/25 00:30 07/18/25 00:27 07/18/25 00:27 07/18/25 00:27 07/18/25 00:27 07/18/25 00:27 07/18/25 00:00 07/17/25 23:51 07/17/25 23:48 07/17/25 23:47 07/17/25 23:47 07/17/25 23:47 07/17/25 23:47 Laboratory Results Abnormal Lab Results 07/17/25 07/18/25 07/18/25 22:43 01:09 05:02 WBC 8.77 RBC 5.00 Hgb 14.6 Hct 43.1 MCV 86.2 MCH 29.2 MCHC 33.9 RDW Std Deviation 40.9 RDW Coeff of Mylene 13.0 Plt Count 309 MPV 10.9 Immature Gran % (Auto) 0.1 Neut % (Auto) 37.7 Lymph % (Auto) 48.0 Barnes % (Auto) 10.1 Eos % (Auto) 3.4 Baso % (Auto) 0.7 Neut # (Auto) 3.30 Lymph # (Auto) 4.21 H Barnes # (Auto) 0.89 H Eos # (Auto) 0.30 Baso # (Auto) 0.06 Immature Gran # (Auto) 0.01 PT Cancelled 11.6 INR Cancelled 1.1 APTT Cancelled 27 PTT Ratio Cancelled 1.0 Sodium 140 Potassium 4.1 Chloride 106 Carbon Dioxide 28 Anion Gap 6 BUN 14 Creatinine 0.84 Est Cr Clr Drug Dosing Not Reportable eGFR 73.33 BUN/Creatinine Ratio 16.7 Glucose 91 Estimat Average Glucose 108 Hemoglobin A1c 5.4 Calcium 9.5 Magnesium 2.2 Total Bilirubin 0.5 AST 18 ALT 12 Alkaline Phosphatase 85 Troponin I High Sens 6.4 Total Protein 7.7 Albumin 4.4 Globulin 3.3 Albumin/Globulin Ratio 1.3 Triglycerides 82 Cholesterol 182 LDL Cholesterol, Calc 107 VLDL Cholesterol, Calc 16 HDL Cholesterol 59 Cholesterol/HDL Ratio 3.1 Diagnostic Findings Chest X-Ray 07/17/25 22:21 Exam(s): XR CXR 1 VIEW EXAM: XR Chest, 1 View CLINICAL HISTORY: neuro deficit, acute stroke suspected. TECHNIQUE: Frontal view of the chest. COMPARISON: Portable chest single view 03/09/2022 FINDINGS: Lungs: No focal consolidation. The pulmonary vasculature demonstrates no significant radiographic abnormality. Pleural space: Unremarkable. No pneumothorax. No large pleural effusion. Heart: Unremarkable. No cardiomegaly. Mediastinum: No significant abnormality identified. The trachea is midline. Bones/joints: Unremarkable. No acute fracture. IMPRESSION: No focal consolidation or acute cardiopulmonary process identified. Electronically signed by: Alejandro Rciks MD 07/18/25 00:[address] 07/17/25 22:21 EXAM: CT head/brain wo con CLINICAL HISTORY: neuro deficit, acute stroke suspected TECHNIQUE: Multiple axial images were obtained from the skull base to the vertex without contrast. CT scan was performed according to ALARA (as low as reasonably achievable). COMPARISON: None. FINDINGS: There is cerebral atrophy. No evidence of space-occupying lesion, hemorrhage, edema, mass effect, midline shift, extra-axial collection, or hydrocephalus is noted. Basal cisterns are symmetric and normal in size and configuration. There are scattered periventricular hypodensities, as can be seen with chronic microvascular ischemic changes. The jaffe-white matter differentiation is preserved. The visualized paranasal sinuses and mastoid air cells are well aerated. Orbital contents are within normal limits. Bony structures are intact. IMPRESSION: 1. CT scan is negative for large territorial ischemic or hemorrhagic stroke. 2. Non-contrast CT can be negative in the setting of hyperacute infarct or small ischemic infarct, and further evaluation with diffusion-weighted MRI is recommended as clinically appropriate. 3. Chronic microvascular ischemic changes. 4. Cerebral atrophy. Electronically signed by Brennen Ge 07-18-2025 01:10 AM Head CTA 07/17/25 22:21 EXAM: CT angio head w con CLINICAL HISTORY: neuro deficit, acute stroke suspected TECHNIQUE: Contrast-enhanced, thin-slice CT angiography scan of the cerebral vessels was performed with intravenous contrast. Angiographic images were processed, and 3D MIP images were acquired for interpretation. Contiguous axial images were obtained. Reformatted coronal and sagittal images were also reviewed. If IV contrast material had not been administered, the likelihood of detecting abnormalities relevant to the patient's condition would have been substantially decreased. The CT scan was performed according to ALARA (as low as reasonably achievable) principles. COMPARISON: None. FINDINGS: Bilateral internal carotid arteries show normal course, calibre, and opacification in the canalicular and cavernous parts. Their division into the anterior cerebral artery and middle cerebral artery is defined. A1, A2, and M1, M2 segments are normal on both sides. Bilateral vertebral arteries are seen to unite to form the basilar artery in a normal fashion. The basilar artery shows normal course, caliber, and opacification. Its division into the posterior cerebral arteries is defined. Bilateral P1 and P2 segments are normal. Visualized venous structures show normal opacification. No evidence of intracranial aneurysm or AV malformation is seen. IMPRESSION: 1. No evidence of stenosis or aneurysm. No evidence of dissection. Electronically signed by Brennen Ge 07-18-2025 01:12 AM Neck CTA 07/17/25 22:21 EXAM: CT angio neck with con CLINICAL HISTORY: neuro deficit, acute stroke suspected TECHNIQUE: Contrast-enhanced thin-slice CT angiography scan of the carotid vessels was performed with intravenous contrast. Angiographic images were processed, and 3D MIP images were acquired for interpretation. Contiguous axial images were obtained. Reformatted coronal and sagittal images were also reviewed. If IV contrast material had not been administered, the likelihood of detecting abnormalities relevant to the patient's condition would have been substantially decreased. The CT scan was performed according to ALARA (as low as reasonably achievable). COMPARISON: none FINDINGS: The included great vessels of the aortic arch are grossly unremarkable. The common carotid artery, carotid bulb, internal carotid artery, and origin of the external carotid artery are well opacified. The vertebral arteries are well opacified. The jugular veins are well opacified. The included lung apices are grossly unremarkable. The thyroid gland appears unremarkable. IMPRESSION: 1. No evidence of stenosis or aneurysm. No evidence of dissection. Electronically signed by Brenenn Ge 07-18-2025 01:13 AM Brain MRI 07/18/25 01:18 EXAM: MR brain wo/w con CLINICAL HISTORY: eval for stroke TECHNIQUE: MRI of the brain was performed with and without intravenous contrast administration (specify contrast agent and dosage). Sequences obtained include pre-contrast and post-contrast T1-weighted, T2-weighted, FLAIR (Fluid-Attenuated Inversion Recovery), DWI (Diffusion-Weighted Imaging), and ADC (Apparent Diffusion Coefficient) sequences. COMPARISON: none. FINDINGS: Brain Parenchyma: A linear area of restricted diffusion is noted involving the left periventricular briones radiata, which appears hypointense on the ADC map without blooming on gradient echo images. This is suggestive of an acute nonhemorrhagic infarct. Multiple T2 and FLAIR hyperintense foci are noted involving the bilateral cerebral lobes' subcortical and periventricular white matter, suggestive of chronic small vessel ischemia. Jaffe-white matter differentiation is preserved. Mild diffuse cerebral and cerebellar atrophy is noted. Post-Contrast Findings: There is no abnormal enhancement of the brain parenchyma or meninges. Ventricles and Sulci: The ventricular system is within normal limits without evidence of hydrocephalus. Sulci and cisternal spaces are age-appropriate. Brainstem and Cerebellum: There is normal appearance of the brainstem and cerebellum without focal lesions or abnormal enhancement. Vessels: The intracranial vessels appear normal without evidence of vascular malformations or aneurysms. Skull and Calvarium: There is no evidence of skull vault lesions or abnormal marrow signal within the calvarium. IMPRESSION: A linear area of restricted diffusion is noted involving the left periventricular briones radiata, which appears hypointense on the ADC map without blooming on gradient echo images, suggestive of an acute nonhemorrhagic infarct. Multiple areas of chronic small vessel ischemia are noted involving the bilateral cerebral lobes. There is diffuse cerebral and cerebellar atrophy. Electronically signed by Brennen Ge 07-18-2025 03:50 AM (1) Cerebrovascular accident Precerebral and cerebral artery: middle cerebral artery Laterality of affected vessel: left
[2025-07-18] MEDS: LEVOTHYROXINE SODIUM 75 MCG TABLET PO SCH (11:10)
[2025-07-18] MEDS: ATORVASTATIN 40 MG TAB PO SCH (11:11)
--- NOTE | 2025-07-18 11:48 | Pharmacy Report ---
- Date of Service July 18, 2025 - Pharmacy CVA/TIA Medication Review Medications to Prevent Stroke handout has been added to the patients discharge packet. Antiplatelet(s) * aspirin 81 mg PO daily + clopidogrel 75 mg PO daily x 21 days, then monotherapy Cholesterol * High intensity statin: atorvastatin 40 mg daily DVT Prophylaxis * SCD thigh Therapeutic Anticoagulation * No history of Afib/Aflutter noted Type 2 Diabetes * Patient does not have T2DM
[2025-07-18 12:13] VITALS: TEMP 97.9
--- NOTE | 2025-07-18 13:59 | XCELERA ---
[id number] [id number]
[2025-07-18 14:43] LABS: Thyroid Stimulating Hormone 0.129 uIu/ml (0.300-4.500)
[2025-07-18 15:21] LABS: T4 Free Thyroxine 1.03 ng/dl (0.61-1.60)
[2025-07-18 16:15] VITALS: PULSE 78; RESP 20; O2SAT 97
--- NOTE | 2025-07-18 16:20 | Communication Note ---
Date of Service: July 18, 2025 By CMS guidelines, a determination that the admission or continued stay is not medically necessary has been made by a member of the UR committee and rekha montelongo for this hospital stay, therefore a Code 44 will be completed and the Inpatient admission will be changed to outpatient.
[2025-07-18 16:25] VITALS: BP 165/86
[2025-07-18] MEDS: STROKE PATIENT DISCHARGE STA (16:58)
--- NOTE | 2025-07-18 18:04 | Discharge Summary ---
Date of Service July 18, 2025 Admission HPI Per Admitting Provider 75-year-old female with past medical history significant for hypothyroidism presents with strokelike symptoms. Patient is from [place]. 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 They have a house close to [employer]. They periodically come to [place]. Patient is currently in [place] renovating her house. Couple of days ago she had severe headache but that got resolved. Yesterday at 6:00 PM patient noticed weakness and tingling on the right side which lasted for about half an hour. It again happened around 9 PM and lasted for about 30 minutes. Patient thinks currently cannot walk properly because of weakness in the right leg. Currently no headache. No blurred visions or double vision. No earache. No runny nose. No sore throat. No cough. Denies any difficulty swallowing. Patient denies chest pain or shortness of breath. No nausea. No abdominal pain. Normal bowel and bladder movements. Currently resting comfortably and hemodynamically stable. MRI was done in the ER as patient wanted to get discharged if possible ,which showed Possible acute Non hemorrhagic infarct in the left periventricular briones radiata. Patient received aspirin and Plavix. Past medical history. As mentioned above. Past surgical history. 2 nasal procedures. C-sections x 2. Left arm surgery. Left knee cartilage repair at the age of 20. Social history. No smoking. No alcohol use. Family history. Mother had thyroid issues. Mother had heart issues in old age. Admission Exam Per Admitting Provider General- Not in distress Head- atraumatic Eyes- PERRL, EOMI. ENT- oropharynx clear Neck- supple, no JVD. Lungs- clear to auscultation no wheezing or crackles Heart- regular rhythm; no murmur, no gallop. Abdomen- normal bowel sounds, soft, nontender, no distension Extremities- no pretibial edema, no erythema seen Neuro- alert, oriented PERRL, EOMI; no facial palsy; no dysarthria; power 5/5 right upper extremity and left extremities. power 3/5 in right lower extremity; no pronator drift. Difficult to raise right leg. co ordination of movements no rmal. Sensations and position sense intact. Principal Diagnosis CVA Discharge Exam Constitutional WD/WN, vitals as above no acute distress Respiratory normal respiratory effort, lungs clear to auscultation Cardiovascular Rate/Rhythm: regular rate and regular rhythm Vessels: normal peripheral pulses Extremities: no edema Skin no rashes, warm and dry Neurologic mild RLE weakness Psychiatric A+Ox3, euthymic affect Discharge Data Allergies Allergy/AdvReac Type Severity Reaction Status Date / Time ranitidine Allergy Mild ALOPECIA Verified 10/13/09 04:43 Consultations 07/18/25 04:30 ED Decision to Admit Stat 07/18/25 09:46 Consult Neurology Routine Ordered Studies 07/17/25 22:21 CT angio head w con Stat CT angio neck with con Stat CT head/brain wo con Stat 07/18/25 01:18 MRI Brain [MR brain wo/w con] Stat Hospital Course (1) Cerebrovascular accident: Acute CVA Patient presenting from home for evaluation of right-sided weakness. Head/neck CTA unremarkable Brain MRI showing acute nonhemorrhagic infarct involving the left periventricular briones radiata Neurology consulted ASA/Plavix X 21 days, then aspirin monotherapy Echo-EF 60 to 65%, borderline LVH, grade 1 diastolic dysfunction Will need outpatient Zio monitor and follow up with neurology (patient prefers to establish care in [place]) Has ongoing right leg weakness - provided with wheeled walker and patient prefers to do outpatient PT HTN Patient with persistently elevated BP Started on amlodipine 5mg daily Borderline LVH on echo Hypothyroidism TSH 0.129, with alayna free T4 1.03 Continue [employer] levothyroxine, consider repeat TSH as an outpatient Total Time Total Time Spent Total Time Spent (In Minutes): 40 Discharge Plan Discharge Items Patient Disposition: Home - Self-Care Reason For Visit: Stroke Symptoms Discharge Diagnosis: Stroke Condition on Discharge: Fair Activity: As commented below Activity Comment: As per PT Non-emergency contact: Primary Care Provider Call non-emergency contact if: you have any medication questions and your symptoms worsen Follow-up/Referrals: Minesh Tong M.D. [Primary Care Provider] - Diet: Heart Healthy Addtl Attending Provider Instructions: You presented to the hospital for evaluation of strokelike symptoms. You had a brain MRI that showed evidence of stroke. You were evaluated by neurology and started on aspirin and Plavix. You will take both medications for 21 days, then aspirin only. You are also being started on atorvastatin (cholesterol medicine) to help prevent future strokes. Your blood pressure was elevated and you were started on blood pressure medicine, amlodipine. You will need to have a heart monitor as an outpatient to monitor for heart arrhythmias - this can be ordered by your PCP. You will need to follow up with neurology - you prefer to establish care closer to your home in [place]. MEDICATION CHANGES: Aspirin 81mg daily Plavix 75mg daily x 21 days Amlodipine 5mg daily Atorvastatin 40mg daily Pending Studies at Discharge: No Stand-Alone Forms: My [facility] [employer], Smoking Cessation, Medications to Prevent Stroke Medications and DC Order Prescriptions: New atorvastatin 40 mg Tablet 40 mg PO QAM Qty: 30 0RF clopidogrel 75 mg Tablet 75 mg PO QAM Qty: 21 0RF amlodipine 5 mg Tablet 5 mg PO QAM Qty: 30 0RF aspirin 81 mg Tablet,Delayed Release (Dr/Ec) 81 mg PO DAILY Qty: 30 0RF Continued levothyroxine 75 mcg tablet 75 mcg PO DAILY Discharge Orders: Discharge Order (Routine); Ordered 07/18/25 Ordered By: Shelly Asencio Admission Data Admit Date/Time: 07/18/25 06:29 Attending Provider: Radha Gonzalez Admit Provider: Ronal Fox Primary Care Provider: Minesh Tong Other Providers: Ronal Fox; Clara Leal; Andre Hunter; Clara Mcguire; Ananth Mistry; Buck Thompson; Monster Bashir; Eren Holt; Neha Nolan; Dylan Gastelmu; Cali Darden; Du Torres; Hector Mukherjee; Hui Escalante; Eren Guthrie; Madalyn Cummings; Jeanette Hastings; Thompson Lee Other Interventions: Discharge Summary Assessment (RN) Last Done: 07/18/25 16:23 Supervising Physician Co-Signing Physician Notes I have seen and discussed the case with the collaborating advanced practitioner. I agree with the above DC. I have reviewed and confirmed the patients medical history, the findings on physical examination, and the patients diagnosis and treatment plan with Elif CALLES and agree with the information documented. Evalauted patient. She reports RLE weakness/buckling. Advised and recommended to consider rehab--patient declined. Recommended walker--patient declined. Brain MRI showing acute nonhemorrhagic infarct involving the left periventricular briones radiata. Exam notable for AO3 woman, CTAB, RRR, 4/5 RLE strength, 5/5 LLE and BUE, CNII-XII intact. Patient started on DAPT for 21 days then plan for asa monotherapy. Agree with plan above. I spent a total of 15 minutes coordinating, documenting, and providing care for this patient excluding time spent in the performance of separately billed services. All of the aforementioned completed outside of collaborating with the assigned advanced practitioner for a full treatment plan. I have reviewed the advanced practitioner's documentation, and I agree with, and take responsibility for the plan of care
[2025-07-19] MEDS ORDERED: CLOPIDOGREL BISULFATE 75 MG TAB PO SCH (09:00)
[2025-07-19] MEDS ORDERED: ASPIRIN 81 MG ECTAB PO SCH (09:00)
--- NOTE | 2025-07-20 13:22 | Pharmacy Report ---
Pharmacist Stroke Counseling - Date of Service July 20, 2025 - Scope: Pharmacy has been consulted to provide medication discharge counseling for this patient admitted with ischemic stroke as per the Pharmacist Discharge Counseling for Stroke Patients Protocol. - Medications on Discharge: Home Medications Medication Instructions Recorded Confirmed levothyroxine 75 mcg tablet 75 mcg PO DAILY 07/18/25 07/18/25 New Rx's Medication Instructions Recorded amlodipine 5 mg tablet 5 mg PO QAM #30 tabs 07/18/25 aspirin 81 mg tablet,delayed 81 mg PO DAILY #30 tabs 07/18/25 release atorvastatin 40 mg tablet 40 mg PO QAM #30 tabs 07/18/25 clopidogrel 75 mg tablet 75 mg PO QAM #21 tabs 07/18/25 - Action: The above medications, specifically ones for stroke treatment/prophylaxis, have been reviewed in detail with the patient and/or patient school admissions representative(s) prior to discharge. This includes indication, common adverse reactions, drug interactions, and medication administration. Medication counseling has been employed using the teach-back method to ensure understanding. - Outcome: The patient and/or patient school admissions representative(s) have demonstrated understanding of the medications. Additional comments: * Patient confirmed that medications were picked up from the pharmacy * Patient mentioned history of GI bleeding with NSAIDs, recommended close monitoring for bleeding especially while on dual antiplatelet therapy * Medications reviewed and questions answered * No obvious barriers to medication compliance identified Thank you for allowing pharmacy to be involved in the care of this patient. Please call [phone] with any additional questions
== END 2025-07-18 17:25 | disposition home or self-care (01) | DRG 65 ==
LOC: ED 22:08 → 2S 07-18 06:29